=== PATIENT | female | born 1945 | race Caucasian/White ===

== ENCOUNTER 2023-01-19 08:13 | Outpatient (CLI) | payer BC ==
[2023-01-19] MEDS ORDERED: Iopamidol 370 76% 100 ML VIAL ONE (09:23)
== END 2023-01-19 08:14 | disposition home or self-care (01) ==
LOC: CT 08:13
PROVIDERS: ATTEND Thoracic Surgery (Cardiothoracic Vascular Surgery)
DX: I70.213 Atherosclerosis of native arteries of extremities with intermittent claudication, bilateral legs (principal); I70.0 Atherosclerosis of aorta; I77.4 Celiac artery compression syndrome; I70.1 Atherosclerosis of renal artery; K55.1 Chronic vascular disorders of intestine; K57.90 Diverticulosis of intestine, part unspecified, without perforation or abscess without bleeding
CPT/HCPCS: 75635; 82565; Q9967

== ENCOUNTER 2023-07-14 07:55 | Outpatient (CLI) | payer BC | END 2023-07-14 07:56 | disposition home or self-care (01) | LOC: BICRAD 07:55 | PROVIDERS: ATTEND Nurse Practitioner Family | DX: R09.89 Other specified symptoms and signs involving the circulatory and respiratory systems (principal); I50.42 Chronic combined systolic (congestive) and diastolic (congestive) heart failure; R91.8 Other nonspecific abnormal finding of lung field | CPT/HCPCS: 71046 ==

== ENCOUNTER 2023-08-10 08:52 | Outpatient (CLI) | payer BC | END 2023-08-10 08:53 | disposition home or self-care (01) | LOC: BICRAD 08:52 | PROVIDERS: ATTEND Family Medicine | DX: R91.8 Other nonspecific abnormal finding of lung field (principal) | CPT/HCPCS: 71046 ==

== ENCOUNTER 2024-07-25 14:34 | Outpatient (CLI) | payer BC | END 2024-07-25 14:35 | disposition home or self-care (01) | LOC: BICRAD 14:34 | PROVIDERS: ATTEND Family Medicine | DX: M54.50 Low back pain, unspecified (principal); M54.9 Dorsalgia, unspecified; M47.816 Spondylosis without myelopathy or radiculopathy, lumbar region; M43.16 Spondylolisthesis, lumbar region; R09.89 Other specified symptoms and signs involving the circulatory and respiratory systems | CPT/HCPCS: 71046; 72072; 72100 ==